=== PATIENT | male | born 1965 | race Caucasian/White ===

== ENCOUNTER → 2017-06-28 | Outpatient (CLI) | payer OTHER, MEDICARE ==
[~2017-06-28] MED LIST: ACYC-113 PO; AMLO5TAB2 PO; AMOX1TAB61 PO; ASPI-496 PO; ASPI-621 PO; CALC0.25 PO; CETI10TA24 PO; CHOL100015 PO; DOCU-30 PO; DOXY100T PO; FURO-92 PO; FURO80TA3 PO; HYDR-3342 PO; LACT1CAP35 PO; LOSA50TA6 PO; METO-93 PO; METO50TA82 PO; MULT-750 PO; NIAC10002 PO; OSEL75CA PO; SEVE800T8 PO; SIMV20TA3 PO; VIT1TABL59 PO
== END | disposition home or self-care (01) ==
LOC: CVU 12:30
PROVIDERS: ATTEND Internal Medicine Cardiovascular Disease
DX: I08.1 Rheumatic disorders of both mitral and tricuspid valves (principal); I25.10 Atherosclerotic heart disease of native coronary artery without angina pectoris; I25.2 Old myocardial infarction; Z95.5 Presence of coronary angioplasty implant and graft; Z94.0 Kidney transplant status
CPT/HCPCS: 93306

== ENCOUNTER → 2017-09-06 | Outpatient (CLI) | payer OTHER, MEDICARE ==
[~2017-09-06] MED LIST changes: +DOCU-131 PO; -DOCU-30 PO
== END | disposition home or self-care (01) ==
LOC: CFH 12:24
PROVIDERS: ATTEND Internal Medicine
DX: Z01.818 Encounter for other preprocedural examination (principal); N26.1 Atrophy of kidney (terminal); K57.90 Diverticulosis of intestine, part unspecified, without perforation or abscess without bleeding; J98.4 Other disorders of lung; N18.6 End stage renal disease
CPT/HCPCS: 74176

== ENCOUNTER → 2017-10-04 | Outpatient (CLI) | payer OTHER, MEDICARE | END | disposition home or self-care (01) | LOC: CFH 14:02 | PROVIDERS: ATTEND Internal Medicine | DX: Z01.818 Encounter for other preprocedural examination (principal); R93.8 Abnormal findings on diagnostic imaging of other specified body structures; N18.6 End stage renal disease | CPT/HCPCS: 93978 ==

== ENCOUNTER 2017-10-09 19:56 | Observation (INO) | payer OTHER, MEDICARE ==
[~2017-10-09] VITALS: Ht 177.8 cm; Wt 113.0 kg
[2017-10-09] MEDS ORDERED: auryxia PO (20:13)
[2017-10-09 20:19] LABS: HEMOGLOBIN 10.6 g/dL (13.7-18.0); WHITE BLOOD COUNT 7.2 x10^3/uL (3.4-10)
[2017-10-09] MEDS ORDERED: CETIRIZINE 10 MG TABLET PO PRN (20:30)
[2017-10-09 20:31] LABS: ASPARTATE AMINO TRANSFERASE 17 U/L (15-37); BLOOD UREA NITROGEN 77 mg/dL (7-18)
[2017-10-09 20:35] LABS: IS PT STATUS REG ER OR PRE ER? YES
[2017-10-09] MEDS: METOPROLOL SUCCINATE 50 MG TAB.ER.24H PO SCH (21:00)
[2017-10-09] MEDS ORDERED: SIMVASTATIN 20 MG TABLET PO SCH (21:00)
[2017-10-09] MEDS: LOSARTAN 50MG TABLET PO SCH (21:00)
[2017-10-09] MEDS ORDERED: ZOLPIDEM 5MG TABLET PO PRN (21:30)
[2017-10-09] MEDS ORDERED: ONDANSETRON 2MG/ML, 2ML IVPush PRN (21:30)
[2017-10-09] MEDS ORDERED: ACETAMINOPHEN 325 MG TABLET PO PRN (21:30)
[2017-10-09] MEDS ORDERED: FUROSEMIDE 40 MG/4 ML ONE (23:10)
[2017-10-09] MEDS ORDERED: NITROGLYCERIN 0.4 MG BOTTLE (25 TABS) SL ONE (23:11)
[2017-10-09] MEDS ORDERED: NITROGLYCERIN SINGLE TAB 0.4 MG SL PRN (23:30)
[2017-10-09] MEDS ORDERED: FUROSEMIDE 40 MG/4 ML IV ONE (23:30)
[2017-10-10] MEDS ORDERED: METOLAZONE 5 MG TABLET PO ONE (01:00)
[2017-10-10] MEDS ORDERED: FUROSEMIDE 40 MG/4 ML IV ONE (01:30)
[2017-10-10 02:17] VITALS: BP 129/76
[2017-10-10 06:51] VITALS: BP 142/81
[2017-10-10 08:02] VITALS: BP 124/75
[2017-10-10] MEDS ORDERED: NIACIN 500 MG TABLET.ER PO SCH (09:00)
[2017-10-10] MEDS: METOPROLOL SUCCINATE 50 MG TAB.ER.24H PO SCH (09:00)
[2017-10-10] MEDS ORDERED: DOCUSATE 100 MG CAPSULE PO SCH (09:00)
[2017-10-10] MEDS ORDERED: FUROSEMIDE 80 MG TABLET PO SCH (09:00)
[2017-10-10] MEDS ORDERED: ASPIRIN 81 MG TABLET EC PO SCH (09:00)
[2017-10-10] MEDS: LOSARTAN 50MG TABLET PO SCH (09:00)
[2017-10-10] MEDS ORDERED: MULTIVITS,STRESS FORMULA 1 TABLET PO SCH (09:00)
[2017-10-10] MEDS ORDERED: ERGOCALCIFEROL 50,000 UNIT CAPSULE PO SCH (09:00)
[2017-10-10] MEDS ORDERED: NITROGLYCERIN OINT 2%, 1GM TP SCH (21:00)
== END 2017-10-10 10:34 | disposition home or self-care (01) ==
LOC: ED 20:37 → EDIP 21:30 → 5SO 22:50
PROVIDERS: ADMIT Internal Medicine Cardiovascular Disease; ATTEND Internal Medicine Cardiovascular Disease
DX: I25.110 Atherosclerotic heart disease of native coronary artery with unstable angina pectoris (principal); I12.0 Hypertensive chronic kidney disease with stage 5 chronic kidney disease or end stage renal disease; N18.6 End stage renal disease; I24.0 Acute coronary thrombosis not resulting in myocardial infarction; E78.5 Hyperlipidemia, unspecified; I25.82 Chronic total occlusion of coronary artery; N26.9 Renal sclerosis, unspecified; T82.898A Other specified complication of vascular prosthetic devices, implants and grafts, initial encounter; Y83.2 Surgical operation with anastomosis, bypass or graft as the cause of abnormal reaction of the patient, or of later complication, without mention of misadventure at the time of the procedure; Z99.2 Dependence on renal dialysis
CPT/HCPCS: 36415; 71010; 80053; 83880; 84484; 85025; 85520; 85610; 85730; 93005; 93459; 96374; 99156; 99157; 99285; C1760; C1769; C1894; G0378; J1644; J1940; J2250; J3010; J3490; Q9967

== ENCOUNTER 2021-03-09 12:05 | Outpatient (CLI) | payer MEDICARE, OTHER ==
[~2021-03-09 12:05] MED LIST changes: +AMLO-150 PO; -AMLO5TAB2 PO; -ASPI-621 PO; +ASPI81TA45 PO; -CETI10TA24 PO; +CETI10TA76 PO; +LOSA50TA14 PO; -LOSA50TA6 PO; +MULT-482 PO; -MULT-750 PO; -OSEL75CA PO; +OSEL75CA26 PO; +SIMV20TA19 PO; -SIMV20TA3 PO; +auryxia PO
== END 2021-03-09 23:59 | disposition home or self-care (01) ==
LOC: CVU 12:05
PROVIDERS: ATTEND Internal Medicine Cardiovascular Disease
DX: I08.8 Other rheumatic multiple valve diseases (principal); I25.10 Atherosclerotic heart disease of native coronary artery without angina pectoris
CPT/HCPCS: 93306